=== PATIENT | male | born 1965 | race Caucasian/White ===

== ENCOUNTER 2017-03-30 11:44 | Emergency (ER) | payer OTHER, MEDICAID ==
[~2017-03-30] VITALS: Ht 177.8 cm; Wt 136.0 kg
[2017-03-30] MEDS ORDERED: VANCOMYCIN 1 G PREMIX 200 ML IV SCH (13:00)
[2017-03-30] MEDS ORDERED: KETOROLAC 30MG/ML VIAL IV ONE (13:00)
[2017-03-30 14:57] LABS: BASOPHILS % 0.3 % (0.0-2.0); EOSINOPHILS % 0.2 % (0.0-5.0); HEMATOCRIT. 29.9 % (42.0-52.0); HEMOGLOBIN. 10.4 g/dL (14.0-18.0); LYMPHOCYTES % 10.2 % (20.0-50.0); MEAN CORPUSCULAR HEMOGLOBIN 29.7 pg (28.0-32.0); MEAN CORPUSCULAR VOLUME 85.8 fL (80.0-94.0); MEAN PLATELET VOLUME 7.3 fl (7.4-10.4); MONOCYTES % 9.7 % (2.0-8.0); NEUTROPHILS % 79.6 % (40.0-76.0); PLATELET 187 x1000/uL (130-400); RED BLOOD CELL COUNT 3.49 mill/uL (4.7-6.1); RED CELL DISTRIBUTION WIDTH 15.6 % (11.6-14.6)
[2017-03-30 15:08] LABS: CARBON DIOXIDE 27 mEq/L (21-32); CHLORIDE 102 mEq/L (98-107)
[2017-03-30 17:35] VITALS: BP 101/82
== END 2017-03-30 18:05 | disposition left against medical advice (07) ==
LOC: ER 13:13 → ENRESERV 19:03 → CANRESERV 19:03 → CANBEDREQ 03-31 01:33
DX: L03.115 Cellulitis of right lower limb (principal); E11.9 Type 2 diabetes mellitus without complications; I10 Essential (primary) hypertension; L98.9 Disorder of the skin and subcutaneous tissue, unspecified
CPT/HCPCS: 36415; 80053; 85025; 96365; 96366; 96375; 99285; J1885; J3370

== ENCOUNTER 2021-05-15 10:45 | Inpatient (IN) | payer MEDICARE, MEDICAID ==
[~2021-05-15] VITALS: Ht 182.9 cm; Wt 136.1 kg
[2021-05-15] MEDS ORDERED: PIPERACILLIN/TAZ 3.375G PREMIX 50 ML IV ONE (12:30)
[2021-05-15] MEDS ORDERED: VANCOMYCIN 1 G PREMIX 200 ML IV ONE (12:30)
[2021-05-15] MEDS ORDERED: SODIUM CHLORIDE 0.9% 1000ML BAG (SEPSIS BOLUS) IV ONE (12:30)
[2021-05-15 12:31] LABS: HEMOGLOBIN. 12.1 g/dL (14.0-18.0); MEAN CORPUSCULAR HEMOGLOBIN 32.8 pg (28.0-32.0); MEAN CORPUSCULAR VOLUME 94.7 fL (80.0-94.0); MEAN PLATELET VOLUME 9.5 fl (7.4-10.4); PLATELET 181 x1000/uL (130-400); RED BLOOD CELL COUNT 3.69 mill/uL (4.7-6.1); RED CELL DISTRIBUTION WIDTH 14.9 % (11.6-14.6)
[2021-05-15 12:32] LABS: CHLORIDE 103 mEq/L (98-107)
[2021-05-15 12:33] LABS: CLARITY URINE CLEAR (CLEAR); COLOR URINE DARK YELLOW (YELLOW); KETONES URINE NEGATIVE (NEGATIVE); LEUKOCYTE ESTERASE URINE NEGATIVE (NEGATIVE); NITRITE URINE NEGATIVE (NEGATIVE); OCCULT BLOOD URINE NEGATIVE (NEGATIVE); PH URINE 6.5 (4.5-8.0); PROTEIN URINE NEGATIVE (NEGATIVE); SPECIFIC GRAVITY URINE 1.005 (1.005-1.030)
[2021-05-15 13:07] LABS: PLATELET ESTIMATE NORMAL
[2021-05-16 09:30] VITALS: BP 81/45
[2021-05-16] MEDS ORDERED: HYDROCODONE/ACETAMINOPHEN 5/325MG TABLET PO PRN (10:15)
[2021-05-16] MEDS ORDERED: SODIUM CHLORIDE 0.9% 500 ML IV ONE (10:45)
[2021-05-16] MEDS ORDERED: VANCOMYCIN 2,000 MG in DEXT 5% WATER 500 ML IV NR (12:00)
[2021-05-16] MEDS: LEVOFLOXACIN 500MG PREMIX 100 ML IV SCH (12:08)
[2021-05-16] MEDS: ENOXAPARIN 40MG/0.4ML SYR SUBCUT SCH ×2 (12:08→21:40)
[2021-05-16] MEDS ORDERED: POTASSIUM CHLORIDE 20MEQ TABLET SR PO NR (13:00)
[2021-05-16 15:43] LABS: *AMPHETAMINES SCREEN URINE PRESUMTIVE POSITIVE (NEGATIVE); *BARBITURATES SCREEN URINE NEGATIVE (NEGATIVE); *BENZODIAZEPINES SCREEN URINE NEGATIVE (NEGATIVE); *COCAINE SCREEN URINE NEGATIVE (NEGATIVE)
[2021-05-16 15:45] LABS: CANNABINOID URINE SCREEN NEGATIVE (NEGATIVE); METHADONE URINE SCREEN NEGATIVE (NEGATIVE); OPIATES URINE SCREEN NEGATIVE (NEGATIVE); PHENCYCLIDINE URINE SCREEN NEGATIVE (NEGATIVE)
[2021-05-16] MEDS ORDERED: DEXTROSE 50% WATER 50ML SYRINGE IV PRN (16:00)
[2021-05-16] MEDS: BLOOD SUGAR DIAGNOSTIC STRIP TEST SCH ×2 (17:44→20:43)
[2021-05-16] MEDS: KETOROLAC 30MG/ML VIAL IV PRN (18:37)
[2021-05-16] MEDS ORDERED: NALOXONE HCL 0.4MG/ML VIAL IV PRN (19:45)
[2021-05-16 20:00] VITALS: BP 96/48
[2021-05-16] MEDS: ZOLPIDEM TARTRATE 5MG TABLET PO PRN (20:40)
[2021-05-16] MEDS: INSULIN LISPRO 100 UNITS/ML SUBCUT SCH (20:43)
[2021-05-16] MEDS: VANCOMYCIN 1250MG in DEXTROSE 5% WATER 250ML IV SCH (21:40)
[2021-05-16 22:41] VITALS: BP 96/48
[2021-05-17] VITALS: BP 87/47
[2021-05-17 04:00] VITALS: BP 101/53
[2021-05-17] MEDS: VANCOMYCIN 1250MG in DEXTROSE 5% WATER 250ML IV SCH (05:15)
[2021-05-17 07:24] LABS: BASOPHILS % 0.4 % (0.0-2.0); EOSINOPHILS % 1.6 % (0.0-5.0); HEMATOCRIT. 31.1 % (42.0-52.0); HEMOGLOBIN. 10.8 g/dL (14.0-18.0); LYMPHOCYTES % 10.4 % (20.0-50.0); MEAN CORPUSCULAR HEMOGLOBIN 33.1 pg (28.0-32.0); MEAN CORPUSCULAR VOLUME 94.8 fL (80.0-94.0); MEAN PLATELET VOLUME 8.8 fl (7.4-10.4); MONOCYTES % 8.2 % (2.0-8.0); NEUTROPHILS % 79.4 % (40.0-76.0); PLATELET 180 x1000/uL (130-400); RED BLOOD CELL COUNT 3.28 mill/uL (4.7-6.1)
[2021-05-17] MEDS: INSULIN LISPRO 100 UNITS/ML SUBCUT SCH ×3 (07:50→21:00)
[2021-05-17 08:00] VITALS: BP 111/65
[2021-05-17] MEDS ORDERED: INFLUENZA VACCINE 05/PF 0.5 ML SYRINGE IM ONE (09:00)
[2021-05-17] MEDS: ENOXAPARIN 40MG/0.4ML SYR SUBCUT SCH ×2 (09:12→20:30)
[2021-05-17] MEDS ORDERED: POTASSIUM CHLORIDE 20MEQ TABLET SR PO NR (11:30)
[2021-05-17] MEDS: LEVOFLOXACIN 500MG PREMIX 100 ML IV SCH (11:46)
[2021-05-17 12:00] VITALS: BP 117/55
[2021-05-17] MEDS: KETOROLAC 30MG/ML VIAL IV PRN (12:51)
[2021-05-17 16:00] VITALS: BP 98/51
[2021-05-17] MEDS: NICOTINE 21MG PATCH TD SCH (17:30)
[2021-05-17 20:00] VITALS: BP 87/45
[2021-05-17] MEDS: ZOLPIDEM TARTRATE 5MG TABLET PO PRN (20:30)
[2021-05-17] MEDS: BLOOD SUGAR DIAGNOSTIC STRIP TEST SCH (21:35)
[2021-05-18] VITALS (7 sets, daily range): BP systolic 88–126; BP diastolic 48–68
[2021-05-18] MEDS: BLOOD SUGAR DIAGNOSTIC STRIP TEST SCH (07:20)
[2021-05-18] MEDS: INSULIN LISPRO 100 UNITS/ML SUBCUT SCH (07:50)
[2021-05-18] MEDS: ENOXAPARIN 40MG/0.4ML SYR SUBCUT SCH ×2 (08:44→21:43)
[2021-05-18] MEDS: SODIUM HYPOCHLORITE 0.125% 473ML SOLUTION TOP SCH ×2 (08:44→17:26)
[2021-05-18] MEDS: NICOTINE 21MG PATCH TD SCH (09:29)
[2021-05-18] MEDS ORDERED: SULF1TAB48 MT ×2 (10:23)
[2021-05-18] MEDS ORDERED: AMOX-424 MT (10:23)
[2021-05-18] MEDS: LEVOFLOXACIN 500MG PREMIX 100 ML IV SCH (10:56)
[2021-05-18] MEDS: ZOLPIDEM TARTRATE 5MG TABLET PO PRN (18:54)
[2021-05-19] VITALS: BP 100/53
[2021-05-19 04:00] VITALS: BP 120/67
[2021-05-19 08:00] VITALS: BP 105/51
[2021-05-19] MEDS: ENOXAPARIN 40MG/0.4ML SYR SUBCUT SCH (09:19)
[2021-05-19] MEDS: NICOTINE 21MG PATCH TD SCH (09:19)
[2021-05-19] MEDS: SODIUM HYPOCHLORITE 0.125% 473ML SOLUTION TOP SCH ×2 (09:20→17:00)
[2021-05-19] MEDS: LEVOFLOXACIN 250MG PREMIX 50 ML IV SCH (11:00)
[2021-05-19 12:00] VITALS: BP 105/51
[2021-05-19] MEDS: SODIUM CHLORIDE 0.45% 1,000 ML IV SCH (12:00)
[2021-05-19] MEDS: LEVOFLOXACIN 500MG PREMIX 100 ML IV SCH (13:17)
[2021-05-19 16:00] VITALS: BP 125/63
[2021-05-19 20:00] VITALS: BP 107/53
[2021-05-19 20:01] LABS: CLARITY URINE CLEAR (CLEAR); COLOR URINE YELLOW (YELLOW); KETONES URINE NEGATIVE (NEGATIVE); LEUKOCYTE ESTERASE URINE TRACE (NEGATIVE); NITRITE URINE NEGATIVE (NEGATIVE); OCCULT BLOOD URINE NEGATIVE (NEGATIVE); PH URINE 5.5 (4.5-8.0); PROTEIN URINE NEGATIVE (NEGATIVE)
[2021-05-19] MEDS: ZOLPIDEM TARTRATE 5MG TABLET PO PRN (20:41)
[2021-05-19] MEDS ORDERED: VANCOMYCIN 1 G PREMIX 200 ML IV NR (21:00)
[2021-05-20] VITALS: BP 126/66
[2021-05-20 04:00] VITALS: BP 128/72
[2021-05-20] MEDS: SODIUM CHLORIDE 0.45% 1,000 ML IV SCH ×2 (07:00→14:40)
[2021-05-20 08:00] VITALS: BP 115/5
[2021-05-20 09:28] LABS: HEMOGLOBIN. 11.9 g/dL (14.0-18.0); MEAN CORPUSCULAR HEMOGLOBIN 32.6 pg (28.0-32.0); MEAN PLATELET VOLUME 7.9 fl (7.4-10.4); PLATELET 231 x1000/uL (130-400); RED BLOOD CELL COUNT 3.65 mill/uL (4.7-6.1); RED CELL DISTRIBUTION WIDTH 15.3 % (11.6-14.6)
[2021-05-20] MEDS: ENOXAPARIN 40MG/0.4ML SYR SUBCUT SCH (09:30)
[2021-05-20] MEDS: NICOTINE 21MG PATCH TD SCH (09:31)
[2021-05-20] MEDS: SODIUM HYPOCHLORITE 0.125% 473ML SOLUTION TOP SCH ×2 (09:31→17:50)
[2021-05-20] MEDS: LEVOFLOXACIN 250MG PREMIX 50 ML IV SCH (11:15)
[2021-05-20 12:00] VITALS: BP 140/67
[2021-05-20 14:12] LABS: PLATELET ESTIMATE NORMAL
[2021-05-20 16:00] VITALS: BP 152/87
[2021-05-20 20:00] VITALS: BP 117/63
[2021-05-20] MEDS: ZOLPIDEM TARTRATE 5MG TABLET PO PRN (20:35)
[2021-05-21] VITALS: BP 144/99
[2021-05-21 04:00] VITALS: BP 106/67
[2021-05-21 08:00] VITALS: BP 113/92
[2021-05-21 08:40] LABS: BASOPHILS % 0.3 % (0.0-2.0); EOSINOPHILS % 1.8 % (0.0-5.0); HEMATOCRIT. 34.1 % (42.0-52.0); HEMOGLOBIN. 11.6 g/dL (14.0-18.0); LYMPHOCYTES % 18.7 % (20.0-50.0); MEAN CORPUSCULAR HEMOGLOBIN 32.4 pg (28.0-32.0); MEAN CORPUSCULAR VOLUME 95.4 fL (80.0-94.0); MEAN PLATELET VOLUME 7.8 fl (7.4-10.4); MONOCYTES % 8.8 % (2.0-8.0); NEUTROPHILS % 70.4 % (40.0-76.0); PLATELET 230 x1000/uL (130-400); RED BLOOD CELL COUNT 3.57 mill/uL (4.7-6.1); RED CELL DISTRIBUTION WIDTH 14.8 % (11.6-14.6)
[2021-05-21] MEDS: NICOTINE 21MG PATCH TD SCH (09:12)
[2021-05-21] MEDS: SODIUM HYPOCHLORITE 0.125% 473ML SOLUTION TOP SCH (09:12)
[2021-05-21] MEDS: ENOXAPARIN 40MG/0.4ML SYR SUBCUT SCH (09:12)
[2021-05-21] MEDS ORDERED: LEVOFLOXACIN 500MG TABLET PO SCH (11:00)
[2021-05-21] MEDS ORDERED: LEVOFLOXACIN 250MG TABLET PO SCH (11:00)
[2021-05-21 12:00] VITALS: BP 140/91
[2021-05-21 16:13] VITALS: BP 140/90
[2021-05-21] MEDS ORDERED: VANCOMYCIN 1 G PREMIX 200 ML IV NR (22:00)
== END 2021-05-21 16:35 | disposition home or self-care (01) | DRG 853 ==
LOC: ER 11:04 → EDBEDREQSVC 18:25 → EDBEDREQTM 18:25 → EDBEDREQ 18:25 → MICUSO 21:20 → 6EST 05-16 09:27
PROVIDERS: ADMIT Internal Medicine; ATTEND Internal Medicine
PROC: 0JBP0ZZ Excision of Left Lower Leg Subcutaneous Tissue and Fascia, Open Approach (ICD-10-PCS; principal; 2021-05-17)
PROC: 0JBR0ZZ Excision of Left Foot Subcutaneous Tissue and Fascia, Open Approach (ICD-10-PCS; 2021-05-17)
DX: A41.9 Sepsis, unspecified organism (principal); E43 Unspecified severe protein-calorie malnutrition; N17.0 Acute kidney failure with tubular necrosis; E87.1 Hypo-osmolality and hyponatremia; L03.115 Cellulitis of right lower limb; L03.116 Cellulitis of left lower limb; Z68.41 Body mass index [BMI] 40.0-44.9, adult; L02.416 Cutaneous abscess of left lower limb; D64.9 Anemia, unspecified; E66.9 Obesity, unspecified; R16.1 Splenomegaly, not elsewhere classified; K74.60 Unspecified cirrhosis of liver; N20.0 Calculus of kidney; E87.6 Hypokalemia; E11.51 Type 2 diabetes mellitus with diabetic peripheral angiopathy without gangrene; F15.90 Other stimulant use, unspecified, uncomplicated; I87.8 Other specified disorders of veins; R74.01 Elevation of levels of liver transaminase levels; B19.20 Unspecified viral hepatitis C without hepatic coma; Z20.822 Contact with and (suspected) exposure to COVID-19; R59.0 Localized enlarged lymph nodes; I10 Essential (primary) hypertension; Z59.01 Sheltered homelessness; Z90.49 Acquired absence of other specified parts of digestive tract; Z71.3 Dietary counseling and surveillance; Z71.51 Drug abuse counseling and surveillance of drug abuser
CPT/HCPCS: 36415; 76700; 76770; 80048; 80053; 80202; 80305; 81003; 82550; 82570; 82962; 83036; 83605; 83880; 84300; 84484; 85025; 87070; 87075; 87077; 87186; 87426; 90686; 93923; 97022; 97162; 97166; 99285; J1650; J1885; J1956; J2543; J3370; J7030; J7040; J7060